=== PATIENT | male | born 1940 | race Caucasian/White ===

== ENCOUNTER → 2018-01-28 | Outpatient (CLI) | payer OTHER | END | disposition home or self-care (01) | LOC: C.LABMFLN 08:30 | PROVIDERS: ATTEND Family Medicine | DX: E78.5 Hyperlipidemia, unspecified (principal) ==

== ENCOUNTER 2021-04-24 05:13 | Observation (INO) ==
--- NOTE | 2021-03-14 08:34 | PAT Medication Instructions ---
Medication Instructions Date of Service March 14, 2021 Home Medications Medication Instructions Recorded nitroglycerin 0.4 mg sublingual 0.4 mg SL Q5M #25 tab 03/07/19 tablet metoprolol tartrate 25 mg tablet 12.5 mg PO BID #90 tab 02/23/20 aspirin 81 mg tablet 81 mg PO QAM nitroglycerin 0.4 mg sublingual tablet 0.4 mg SL Q5M metoprolol tartrate 25 mg tablet 12.5 mg PO BID acetaminophen 650 mg tablet,extended release 650 mg PO Q12H esomeprazole magnesium [Nexium] 20 mg PO Q2D lisinopril 30 mg PO QAM simvastatin 20 mg PO HS Continue as directed nitroglycerin 0.4 mg sublingual tablet 0.4 mg SL Q5M (if needed) esomeprazole magnesium [Nexium] 20 mg PO Q2D DO NOT take the morning of surgery lisinopril 30 mg PO QAM Take morning of surgery With a small sip of water, OTHERWISE NOTHING TO EAT OR DRINK AFTER MIDNIGHT: metoprolol tartrate 25 mg tablet 12.5 mg PO BID acetaminophen 650 mg tablet,extended release 650 mg PO Q12H (okay to take up to 4 hours prior to surgery if needed) aspirin 81 mg tablet 81 mg PO QAM (continue as normal unless told otherwise by surgeon) Take evening before surgery metoprolol tartrate 25 mg tablet 12.5 mg PO BID acetaminophen 650 mg tablet,extended release 650 mg PO Q12H simvastatin 20 mg PO HS Other Notes If you have any questions please call us at [phone] or [phone] or [phone] or [phone]
--- NOTE | 2021-03-18 15:22 | Anesthesiology Consultation ---
Date of Service March 18, 2021 Assessment & Plan (1) Encounter for pre-operative examination: - COVID screening: Per assessment on 03/18: Travel screen- Plans to travel to [place] and return 04/04. Patient vaccinated. Return from travel will be > 2 weeks before preop COVID testing. No known COVID-19 positive contacts or current COVID-19 related symptoms. Surgeon arranging preop COVID testing. Awaiting results. - PCP office visit (02/26/21): "asymptomatic but his activity is limited due to his hip OA and his CABG was 11 years ago. He will be scheduled for a nuclear stress test in anticipation of hip surgery" > Stress test done 03/13/21. Per PCP (ordering provider) note 03/14/21: "stress test is negative" Chart Review Chart Review: Acceptable Risk for Surgery and Patient seen in Pre Admission Testing Teaching & Discussion Pre-Anesthesia Teaching/Discussion Notes: Instructed NPO after midnight before surgery,except medications with 15 cc of water. Medication instructions provided according to the PAT guidelines. History Surgery Operation Date: 04/24/21 09:05 Proposed Procedures p Left Total Hip Replacement - Alcon Johnson MD Height/Weight Height: 6 ft 1 in Weight: 118.6 kg Allergies Allergy/AdvReac Type Severity Reaction Status Date / Time No Known Allergies Allergy Verified 03/14/21 08:13 Medications Home Medications Medication Instructions Recorded Confirmed Last Taken aspirin 81 mg tablet 81 mg PO QAM #30 tab 03/07/19 03/14/21 Unknown nitroglycerin 0.4 mg sublingual 0.4 mg SL Q5M #25 tab 03/07/19 03/14/21 Unknown tablet metoprolol tartrate 25 mg tablet 12.5 mg PO BID #90 tab 02/23/20 03/14/21 Unknown acetaminophen 650 mg 650 mg PO Q12H 02/26/21 03/14/21 Unknown tablet,extended release esomeprazole magnesium [Nexium] 20 mg PO Q2D 03/14/21 03/14/21 Unknown lisinopril 30 mg PO QAM 03/14/21 03/14/21 Unknown simvastatin 20 mg PO HS 03/14/21 03/14/21 Unknown Past Medical History Medical History Benign essential HTN CAD (coronary artery disease) Dyslipidemia GERD (gastroesophageal reflux disease) Kidney stones Obesity Osteoarthritis of left hip Exercise / Class Metabolic Activity II 4-5 Yardwork/Stairs/Walk up hill (one FS (no CP, no SOB)) Past Family History Family History Father Stroke Brother Coronary heart disease Mother Rheumatic fever Past Surgical History Surgical History History of open reduction and internal fixation (ORIF) procedure S/P CABG (coronary artery bypass graft) S/P colonoscopy S/P inguinal hernia repair Past Anesthesia History No Hx of Anesthesia Complications and No Family Hx of Anesthesia Complications History of PONV No Hx of PONV and Hx of Motion Sickness (+ boats) Social History Smoking Status: Never smoker Do You Dip or Chew Tobacco: No Hx Alcohol Use: Yes alcohol intake frequency: holidays/special occasions only Hx Substance Use: No substance use type: does not use Review of Systems Patient denies chest pain, shortness of breath, dyspnea on exertion, fever, chills, cough, wheezing, palpitations. Physical Exam Vital Signs VITALS BP 150/73 P 50 > chronic bradycardia on beta christen, asympatomatic TEMP 98.1 SP02 96%RA RESP 18 PHYSICAL Full cervical extension range of motion. Full TMJ range of motion. TMD 3 finger breaths Mallampati Score 2 Dentition: intact, + cap (lower side) Lungs: clear throughout to auscultation Cardiac: regular rate and rhythm, no murmurs noted Spine: normal Carotid arteries: negative bruit Extremities: no edema Lab Results Anesthesia Preop Results Results Anesthesia Widget: WBC 5.01 K/uL (4.8-10.8) 03/18/21 Hgb 14.9 g/dL (14.0-18.0) 03/18/21 Hct 44.5 % (42-52) 03/18/21 Plt 183 K/uL (130-400) 03/18/21 Na 143 mmol/L (136-145) 03/18/21 K 4.8 mmol/L (3.5-5.1) 03/18/21 Cl 111 mmol/L (98-107) H 03/18/21 CO2 28 mmol/L (21-32) 03/18/21 BUN 28 mg/dl (7-18) H 03/18/21 Creat 0.98 mg/dl (0.6-1.4) 03/18/21 Glucose Level 96 mg/dl (70-99) 03/18/21 PT 10.9 Seconds (9.0-12.0) 03/18/21 PTT 25.1 Seconds (21.0-31.0) 03/18/21 INR 1.1 (0.9-1.1) 03/18/21 Blood Type A Positive 03/18/21 Antibody Screen POSITIVE A 03/18/21 Lab Comments: Per Sania at blood bank, aware of positive antibodies and nothing further needed from PAT. Testing Electrocardiogram Date: 03/18/21 Sinus bradycardia with first-degree AV block at 48 bpm. Nonspecific T wave abnormality. Unconfirmed EKG. Chest X-Ray Date: 03/18/21 FINDINGS: No pneumothorax. No pleural effusion. No large infiltrates or consolidative lesions are seen. Mild reticular prominence is seen within left lower lung. Cardiomediastinal silhouette is within normal limits in size. No significant pulmonary vascular congestion.. Aorta is tortuous. Osseous structures: Fracture deformities of posterior upper rib cage is seen bilaterally. Midline sternotomy wires are seen. IMPRESSION: No large infiltrates or consolidative lesions are seen. Mild reticular prominence of pulmonary interstitium is demonstrated at the left lower lung. Fracture deformities of posterior ribs. Stress Test Date: 03/13/21 Negative myocardial perfusion study for significant Lexiscan induced ischemia. Normal LV size and function. LVEF 56%. Abnormal septal motion consistent with postoperative state. Non-diagnostic stress ECG due to inability to reach target HR with Lexiscan. 48% MPHR.
--- NOTE | 2021-04-21 10:34 | History and Physical Report ---
DATE OF ADMISSION: 04/24/2021 CHIEF COMPLAINT: Left hip pain. HISTORY OF PRESENT ILLNESS: A 80-year-old gentleman from [place] who presents for surgical treatm ent of his left hip. He has got a several-year history of increasing left hip pain and discomfort th at has gotten significantly worse over the past 6 to 7 months. No particular injury. He had an inje ction back in January, which helped him temporarily. He has resorted to using a cane due to the pain for the past month or two. He is planning on having his hip replaced by Dr. Mccray, but Dr. Mccray is now leaving town and he presents here for treatment. He takes Tylenol several times a day with mini mal relief. Pain is in his groin, radiates down to his knee. He limps more as the day goes on. Dif ficulty putting his shoes and socks on. PAST MEDICAL HISTORY: 1. Coronary artery disease, status post 4-vessel CABG 10 years ago. 2. Hypertension. 3. Leg traction for a fracture as a child. PAST SURGICAL HISTORY: Includes, 1. Four-vessel bypass. 2. Left leg traction. ALLERGIES: None. CURRENT MEDICATIONS: Include, 1. Aspirin 81 mg a day. 2. Lisinopril. 3. Metoprolol. 4. Simvastatin. 5. Nexium. 6. Tylenol. SOCIAL HISTORY: A 80-year-old gentleman. He is . He lives in [place]. FAMILY HISTORY: Noncontributory. REVIEW OF SYSTEMS: Negative for diabetes, neurologic problem, vascular problem or bleeding disorders . No chest pain or shortness of breath. No history of DVT or PE. No known bleeding problems. PHYSICAL EXAMINATION: GENERAL: Healthy, pleasant, elderly fairly large gentleman. HEENT: Benign. NECK: Supple, no lymphadenopathy. LUNGS: Clear to auscultation. HEART: Has a regular rate and rhythm. ABDOMEN: Soft, nontender, nondistended. EXTREMITIES: Grossly neurovascularly intact except as follows: Examination of the left leg and hip reveals the patient walks with the use of a cane. He limps on his left side. Leg lengths clinically appear pretty equal. He has got stiffness with any attempted hip motion. This does recreate his pa in. I can internally rotate to neutral at best. Negative straight leg raise. He is neurologically intact. X-RAYS: X-rays of the left hip were reviewed. He has advanced left hip DJD. He has got complete lo ss of his joint space. He has got osteophytes superiorly as well as inferiorly and medially. He has got cystic changes in the femoral head and acetabulum. Bone looks pretty normal structure. I do no t see any signs of previous fracture in this area. ASSESSMENT: A 80-year-old male with advanced left hip degenerative joint disease. He failed conserv ative treatment and would like to proceed with surgical treatment. PLAN: We will take him to the operating room and do a left total hip replacement. The risks and rosita efits of this procedure were explained to the patient including but not limited to DVT, PE, , in fection, neurological injury, vascular injury, bleeding problem, pain, limited range of motion, stiff ness, failure to relieve his symptoms, incomplete relief of symptoms, need for further surgery in the future, fracture, leg length inequality, nerve palsy, dislocation, etc. The patient understands and desires to proceed. Informed consent is obtained. He is planning to be discharged to home using [facility] program. He knows to hold his lisinopril and take metoprolol on the morning of . Job ID: [id number]
[2021-04-24] MEDS ORDERED: TRANEXAMIC ACID 1,000 MG **IV Intra-op IV SCH (06:00)
[2021-04-24] MEDS ORDERED: BUPIVACAINE LIPOSOME/PF 266 MG, BUPIVACAINE/EPINEPHRINE 50 ML, SODIUM CHLORIDE 0.9% 30 ... INFIL SCH (06:00)
[2021-04-24] MEDS ORDERED: ACETAMINOPHEN 500 MG TAB PO SCH (06:00)
[2021-04-24] MEDS ORDERED: ceFAZolin 2000MG 2,000 MG/15 ML SYR IV SCH (06:00)
[2021-04-24] MEDS ORDERED: LR 60ML/HR IV SCH (06:00)
[2021-04-24] MEDS ORDERED: Scopolamine 1 MG TDSY TD SCH (06:00)
[2021-04-24] MEDS ORDERED: GABAPENTIN 300 MG CAP PO SCH (06:00)
[2021-04-24] MEDS ORDERED: LR 500ML BOLUS, THEN 15ML/HR IV SCH (06:00)
[2021-04-24] MEDS ORDERED: METOCLOPRAMIDE HCL 10 MG TABLET PO SCH (06:00)
[2021-04-24] MEDS ORDERED: FAMOTIDINE 20 MG TAB PO SCH (06:00)
[2021-04-24] MEDS ORDERED: MIDAZOLAM HCL 1 MG/ML 2ML VIAL ONE (06:22)
[2021-04-24] MEDS ORDERED: fentaNYL citrate 100 MCG/2 ML VIAL ONE (06:23)
[2021-04-24] MEDS ORDERED: LIDOCAINE 2% 2 ML VIAL/AMP(20MG/ML) INFIL ONE (06:24)
[2021-04-24] MEDS ORDERED: ONDANSETRON INJ 2 MG/ML 2 ML VIAL ONE (06:24)
[2021-04-24] MEDS ORDERED: PROPOFOL IV EMULSION 10 MG/ML 20 ML VIAL IV ONE ×2 (06:24)
[2021-04-24] MEDS ORDERED: ONDANSETRON INJ 2 MG/ML 2 ML VIAL IV PRN ×2 (06:25→10:35)
[2021-04-24] MEDS ORDERED: ATROPINE SULFATE 0.1 MG/ML 10ML SYR IV PRN (06:25)
[2021-04-24] MEDS ORDERED: ePHEDrine sulfate 50 MG/ML AMP IV PRN (06:25)
[2021-04-24] MEDS ORDERED: fentaNYL citrate 100 MCG/2 ML VIAL IV PRN (06:25)
[2021-04-24] MEDS ORDERED: BUPIVACAINE 0.5 % 5 MG/1 ML PF 10ML VIAL ONE (06:31)
[2021-04-24] MEDS ORDERED: MoRPHine SULFATE PF 1 MG/ML 10 ML AMP/VIAL ONE (06:34)
[2021-04-24] MEDS ORDERED: SODIUM CHLORIDE 0.9% INJ 10 ML VIAL ONE (06:38)
[2021-04-24] MEDS ORDERED: ePHEDrine sulfate 50 MG/ML AMP ONE (06:38)
[2021-04-24] MEDS ORDERED: BUPIVACAINE 0.5 % 5 MG/1 ML MPF 30ML VIAL ONE (06:47)
[2021-04-24] MEDS ORDERED: EPINEPHrine INJ 1 MG/ML AMP ONE (06:48)
--- NOTE | 2021-04-24 06:56 | History & Physical Bridge Note ---
Date of Service April 24, 2021 History & Physical Bridge Note I have examined the patient, reviewed the History & Physical and in the interval since the performance of the History & Physical I have noted the following changes of clinical significance: no changes noted
--- NOTE | 2021-04-24 09:02 | Operative Report ---
Post Operative Report Pre & Post Diagnosis Operation Date: 04/24/21 07:00 Pre-Op Diagnosis: Left Hip Osteoarthritis Post-Op Diagnosis: Left Hip Osteoarthritis I identified the patient and participated in the time-out.: Yes Procedure Operation Date: 04/24/21 07:00 Actual Procedures p Left Total Hip Replacement(Left) - Alcon Johnson MD Surgeon Alcon Johnson MD Business Reporter Clive, PAC Estimated Blood Loss 200 Findings Consistent with Post-Op Diagnosis Operative findings revealed advanced left hip DJD. Grade 4 [id number] disease of the femoral head and acetabulum. Moderate-sized joint effusion. Not a lot of osteophyte formation. Fluids 1100 cc. Specimens Left femoral head sent for pathology. Drains None Anesthesia Type Spinal MAC Complications none Disposition Accompanied Patient To Recovery: Yes Indications Patient is a 80-year-old gentleman is had a several year history of increased left hip pain discomfort got secondarily worse over the past year. He failed all conservative measures. X-rays were advanced left hip DJD. He elected proceed with surgical treatment. Description of Procedure Operative implants consist of: 1 Biomet size 60 mm G7 acetabular shell. 2. 6.5 cancellous acetabular screws 135 mm length by 30 mm length. 3. [place] hole automobile relocation engineer. 4. Highly cross-linked polyethylene liner with a 60 mm outer diameter and 40 mm inner diameter. 5. DePuy Corail size 13 KLA femoral stem. 6. +8.5/40 mm ceramic articular ball. The patient was taken to the operating, identified, and placed on the operating table supine position but all contractors were properly padded. IV antibiotics 5 by anesthesia team. A spinal anesthetic had been implemented holding area. Chi catheter was placed in sterile fashion. Patient then placed in the right lateral decubitus position. Axillary roll was placed. A Stulberg hip positioner was used for positioning. The left hip and leg were then prepped and draped in usual sterile fashion. A posterior lateral approach to the left hip was then performed to a curvilinear incision centered over the greater trochanter. Sharp dissection got through subcutaneous this down to the IT band gluteal fascia but the IT band gluteal fascia then incised longitudinally in line with skin incision. The underlying greater bursa was excised. The piriformis and external rotators along with the posterior hip joint capsule were then released from the posterior aspect the hip joint as a single layer. Great care was taken throughout the procedure protect the sciatic nerve at all times. Hip was internally rotated and dislocated. A femoral neck osteotomy cut was made with Final Cut 15 mm above the lesser trochanter. Femoral head was removed and sent for pathology. The femur was retracted anteriorly. Attention drawn the acetabulum. The acetabular labrum was excised. The pulmonary fat was excised. Sequential reaming the acetabular was then performed begin with size 49 progressing up to 59. I then reamed a little bit with a 60 reamer and placed a 60 mm cup in about 40 degrees lateral opening and 20 degrees of anteversion. It was fixed with two 6.5 cancellous acetabular screws. A trial liner was placed. Attention drawn the femur. Proximal femur then with a cookie-cutter followed by canal finder. I then broached begin the size 8 and progressing up to 13. Got excellent fit at 13. Then trialed the hip and the +8.5 articular ball provide full stability, appropriate soft tissue tension and equal leg lengths. I elect to place these implants. All trial implants were removed. An apex hole automobile relocation engineer was placed. Highly cross-linked polyethylene liner was placed. A size 13 KLA femoral stem was impacted in position. +8.5/40 mm ceramic articular ball was placed. Hip was located once again found to be stable. Attention drawn toward closing. Nupathe wounds irrigated scope soft pulsatile lavage solution. I did inject locally with 60 cc of absent Marcaine with epinephrine. Posterior capsule and external rotators were then repaired through drill holes in the posterior trochanter with #2 Tycron suture as a single layer. The IT band gluteal fascia then closed in 1 PDS suture running fashion for subcutaneous tissues then closed in 2 layers the deep layer #1 Vicryl suture subcutaneous tissues with 2 Dexon suture in a buried interrupted fashion. Skin was closed skin kirby. Leg was then cleaned and dried a sterile dressing both Xeroform, 4 x 4's, sterile ABD pad and foam tape was applied. Patient then transferred to the recovery room in stable condition. Patient tolerated procedure well and there were no complications. Juan Francisco Duffy, my physician physician customer support assistant, was present for the entire procedure. His assistance was required for proper patient positioning, prepping and draping, surgical exposure, retraction, placement of the implants, closure of the incision, placement of sterile bandage. I attest to the content of the Intraoperative Record and any orders documented therein. Any exceptions are noted below.
--- NOTE | 2021-04-24 10:17 | XRay Report ---
AP PELVIS, CROSSTABLE LATERAL LEFT HIP History: Left total hip arthroplasty. Degenerative arthritis. Postop. FINDINGS: The patient is status post a left total hip arthroplasty. The hardware is intact. No fractu re or dislocation. Skin kirby are in place. IMPRESSION: Left total hip arthroplasty. No evidence for hardware complication. ACT 112: Negative or not required by law. Electronically signed by: Farrukh Caba M.D. 04/24/2021 10:16 AM
[2021-04-24] MEDS ORDERED: ALUMINUM/MAGNESIUM SUSP 30 ML UDC PO PRN (10:35)
[2021-04-24] MEDS ORDERED: METOCLOPRAMIDE HCL INJ 5 MG/ML 2 ML VIAL IV PRN (10:35)
[2021-04-24] MEDS ORDERED: MAGNESIUM HYDROXIDE SUSP 30 ML UDC PO PRN (10:35)
[2021-04-24] MEDS ORDERED: bisacodyL 10 MG SUPP PR PRN (10:35)
[2021-04-24] MEDS ORDERED: NITROGLYCERIN SL 0.4 MG/TAB TAB SL PRN (10:35)
[2021-04-24] MEDS ORDERED: HYDROmorphone INJ 0.5 MG/0.5 ML SYR IV PRN (10:35)
[2021-04-24] MEDS ORDERED: NALOXONE HCL 0.4 MG/1 ML VIAL/CARP IV PRN (10:35)
[2021-04-24] MEDS ORDERED: TAMSULOSIN HCL 0.4 MG CAP PO PRN (10:35)
[2021-04-24] MEDS: SODIUM CHLORIDE 0.9% 1000ML 1,000 ML IV SCH ×2 (11:28→18:21)
[2021-04-24] MEDS: DOCUSATE SODIUM 100 MG CAP PO SCH ×2 (12:00→19:21)
[2021-04-24] MEDS: ASPIRIN 81 MG ECTAB PO SCH ×2 (12:00→21:45)
[2021-04-24] MEDS: MULTIVITAMIN TAB PO SCH (12:00)
[2021-04-24] MEDS: lisinopril 10 MG TAB PO SCH (12:01)
[2021-04-24] MEDS: KETOROLAC TROMETHAMINE 15 MG/ML VIAL IV SCH ×3 (12:01→23:42)
[2021-04-24] MEDS: METOPROLOL TARTRATE 25 MG TAB PO SCH ×3 (12:01→23:41)
--- NOTE | 2021-04-24 12:28 | Progress Notes ---
DATE OF SERVICE: 04/24/2021 SUBJECTIVE: A 80-year-old gentleman postop from a left hip replacement. He is doing well. Not havi ng any pain yet. Spinal is still in effect. No chest pain or shortness of breath. Not feeling dizz y or lightheaded. OBJECTIVE: VITAL SIGNS: Temperature is 36.4. Vital signs are stable. PHYSICAL EXAMINATION: GENERAL: Shows a pleasant, elderly male. He is sitting up in his bed and looks quite comfortable. LUNGS: Clear to auscultation. HEART: Regular rate and rhythm. ABDOMEN: Soft, nontender, nondistended. EXTREMITIES: Grossly neurovascularly intact except as follows: Examination of the left leg reveals the leg lengths are equal. Dressing is clean, dry and intact. Thigh is soft and supple. NEUROLOGIC: He is neurologically intact. X-RAYS: X-rays of the left hip from recovery room are reviewed. He has a left uncemented total hip arthroplasty. Components looked to be in good position. No signs of problems. ASSESSMENT: A 80-year-old gentleman postoperative from a left hip replacement, doing well. Spinal i s still in effect. Hip is located. PLAN: 1. DVT prophylaxis includes thigh-high TEDs, SCDs, and aspirin twice a day. 2. PT, OT, weightbear as tolerated. Left total hip protocol. 3. Pain control, doing well with current pain regimen. 4. IV antibiotics x24 hours. 5. Disposition: Plan to discharge to home with some home health if does okay and recovers adequatel y tomorrow. Job ID: [id number]
--- NOTE | 2021-04-24 13:07 | Anesthesiology Progress Note ---
Date of Service April 24, 2021 Anesthesia Post Procedure Vital Signs Vital Signs: Temp Pulse Pulse Resp BP BP Pulse Ox 04/24/21 12:25 36.3 C L 46 L 16 154/78 H 95 04/24/21 11:27 36.4 C L 44 L 16 154/75 H 93 04/24/21 10:55 36.4 C L 46 L 16 174/79 H 96 04/24/21 10:25 36.4 C L 47 L 18 150/98 H 92 04/24/21 10:10 36.4 C L 47 L 16 144/70 H 94 04/24/21 10:00 49 L 14 155/81 H 93 04/24/21 09:50 46 L 16 148/69 H 93 04/24/21 09:40 47 L 14 142/66 H 94 04/24/21 09:30 48 L 18 141/65 H 94 04/24/21 09:20 47 L 16 126/64 95 04/24/21 09:10 47 L 16 132/62 96 04/24/21 09:00 48 L 20 127/65 95 04/24/21 08:53 36.5 C 58 L 16 131/60 95 04/24/21 05:41 36.7 C 45 L 18 169/89 H 96 Pain Intensity Left Hip: Pain Intensity: 4 Transfer of Care Handoff Completed per policy Notes Mental Status: alert / awake / arousable and participated in evaluation Patient Amnestic to Procedure: Yes Nausea / Vomiting: adequately controlled Pain: adequately controlled Airway Patency, RR, SpO2: stable & adequate BP & HR: stable & adequate Hydration State: stable & adequate Neuraxial Anesthesia: was administered and sensory block is resolving Anesthetic Complications: no major complications apparent and Pt Satisfied with anesthetic care
[2021-04-24] MEDS ORDERED: TRANEXAMIC ACID / 0.7% NACL 1,000 MG/100 ML BAG IV SCH (15:00)
[2021-04-24] MEDS: ceFAZolin 2000MG 2,000 MG/15 ML SYR IV SCH ×2 (15:13→23:42)
[2021-04-24] MEDS: ACETAMINOPHEN 500 MG TAB PO SCH ×2 (15:14→21:45)
[2021-04-24] MEDS: Scopolamine CHECK PATCH PLACEMENT SCH (15:14)
[2021-04-24] MEDS: traMADol HCL 50 MG TABLET PO PRN ×2 (15:22→21:44)
[2021-04-24] MEDS: ASCORBIC ACID 500 MG TAB PO SCH (17:32)
[2021-04-24] MEDS ORDERED: SIMVASTATIN 20 MG TAB PO SCH (21:00)
[2021-04-24] MEDS ORDERED: SENNA 8.6 MG TAB PO SCH (21:00)
[2021-04-25] MEDS: SODIUM CHLORIDE 0.9% 1000ML 1,000 ML IV SCH ×2 (00:45→01:00)
[2021-04-25] MEDS: Scopolamine CHECK PATCH PLACEMENT SCH ×2 (00:46→08:29)
[2021-04-25] MEDS: ACETAMINOPHEN 500 MG TAB PO SCH (05:38)
[2021-04-25] MEDS: KETOROLAC TROMETHAMINE 15 MG/ML VIAL IV SCH (05:39)
[2021-04-25] MEDS ORDERED: dexAMETHasone 10 MG in SYRINGE 0 ML IV SCH (08:00)
[2021-04-25 08:02] LABS: Basophils # (auto) 0.01 K/uL (0-0.2); Basophils % (auto) 0.1 %; Eosinophils # (auto) 0.07 K/uL (0-0.5); Hematocrit (blood only) 39.2 % (42-52); Hemoglobin 13.1 g/dL (14.0-18.0); Immature Granulocytes # (auto) 0.01 K/uL (0.00-0.02); Immature Granulocytes % (auto) 0.1 %; Lymphocytes # (auto) 1.45 K/uL (1.2-3.4); Lymphocytes % (auto) 21.5 %; Mean Corpuscular Hemoglobin 31.4 pg (25-34); Mean Corpuscular Hgb Conc 33.4 g/dL (32-36); Monocytes # (auto) 0.72 K/uL (0.11-0.59); Monocytes % (auto) 10.7 %; Neutrophils # (auto) 4.47 K/uL (1.4-6.5); Neutrophils % (auto) 66.6 %; Platelet Count 151 K/uL (130-400); RDW Coefficient of Variation 12.7 % (11.5-14.5); RDW Standard Deviation 43.8 fL (36.4-46.3); Red Blood Count 4.17 M/uL (4.7-6.1); White Blood Count 6.73 K/uL (4.8-10.8)
[2021-04-25] MEDS: DOCUSATE SODIUM 100 MG CAP PO SCH (08:28)
[2021-04-25] MEDS: lisinopril 10 MG TAB PO SCH (08:28)
[2021-04-25] MEDS: METOPROLOL TARTRATE 25 MG TAB PO SCH (08:28)
[2021-04-25] MEDS: MULTIVITAMIN TAB PO SCH (08:28)
[2021-04-25] MEDS: ASPIRIN 81 MG ECTAB PO SCH (08:28)
[2021-04-25] MEDS: ASCORBIC ACID 500 MG TAB PO SCH (08:29)
[2021-04-25 08:40] LABS: BUN Creatinine Ratio 30.8 (10-20); Calcium 8.3 mg/dl (8.5-10.1); Creatinine Clr Calc Pharmacy 81.9 ml/min; Est GFR (African American) 83.6 ml/min; Est GFR (Non-African American) 72.1 ml/min; Potassium 4.6 mmol/L (3.5-5.1)
[2021-04-25] MEDS ORDERED: PANTOprazole 40 MG TAB PO SCH (09:00)
--- NOTE | 2021-04-25 09:07 | Progress Notes ---
DATE OF NOTE: 04/25/2021. SUBJECTIVE: A 80-year-old gentleman postoperative day 1 from a left hip replacement. He is doing pr prashant well. Pain is controlled. No chest pain or shortness of breath. Not feeling dizzy or lighthea ded. OBJECTIVE: VITAL SIGNS: Temperature 36.6. Vital signs are stable. GENERAL: Shows a pleasant, elderly male. He is lying in bed, looks pretty comfortable this morning. LUNGS: Clear to auscultation. HEART: Regular rate and rhythm. ABDOMEN: Soft, nontender, nondistended. EXTREMITIES: Grossly neurovascularly intact except as follows. Examination of the left hip reveals the leg lengths to be equal. Dressing is clean, dry and intact. Thigh is soft and supple. Hip is located. He is neurologically intact. LABORATORY DATA: Labs are pending. IMPRESSION: A 80-year-old gentleman postoperative day 1 from a left hip replacement, doing pretty we ll. Pain is controlled. Hip is located. He is neurologically intact. PLAN: 1. DVT prophylaxis include thigh-high TEDs, SCDs, and aspirin twice a day. 2. PT, OT, weightbear as tolerated. Left total hip protocol. 3. Pain control, doing okay with current pain medicine. 4. Disposition and plan to discharge to home with some home health if he does okay in therapy today. Job ID: [id number]
[2021-04-25 11:19] VITALS: BP 126/61; PULSE 54; TEMP 98.4; O2SAT 94
== END 2021-04-25 14:07 | disposition home health service (06) ==
LOC: ASU 05:13 → 3E 05:13